=== PATIENT | male | born 1970 | race Caucasian/White ===

== ENCOUNTER → 2018-01-13 | Outpatient (CLI) | payer BC ==
[2014-05-20 12:21] VITALS: BMI 29.9
[~2018-01-13] MED LIST: BARIUM SULFATE 176 GM BTL PO ONE; BARIUM SULFATE 340 GM POWD ONE; ESC10 PO; ESOM20CA31 PO; ESOM40CA42 PO; LACT1PAC23 PO; OMEP-218 PO; PAN40 PO; PER PO; SIMV-49 PO; SIMV-54 PO; SUC1 PO; SUCR1TAB51 PO; [UNRECOGNIZED DRUG - CODE] PO
--- NOTE | 2018-01-13 10:25 | RADIOLOGY IMAGING REPORT ---
FACILITY: [facility] [place] PATIENT NAME: Kiel Saenz : 1970 MR: [id number] V: [id number] EXAM DATE: ORDERING PHYSICIAN: CROW PIMENTEL TECHNOLOGIST: Location: [facility] [place] Patient: Kiel Saenz : 1970 Visit/Account:[id number] Date of Sevice: 01/13/2018 Double contrast upper GI. HISTORY: Burning in lower esophagus for two weeks with reflux. COMPARISON: 10/11/2011. The patient swallowed thin and thick barium without difficulty. Minimal tertiary contractions are pr esent in the distal esophagus. The esophagus is otherwise unremarkable. No hiatal hernia or gastroes ophageal reflux. The stomach, pyloric channel, and the duodenum are unremarkable. The proximal jejunu m is unremarkable. No ulceration is identified. Surgical clips are present in the gallbladder fossa. FLUOROSCOPY TIME: 1.4 minutes. DOSE: DAP was 1761 microGy*m2. IMPRESSION: Minimal esophageal dysmotility. Otherwise negative upper GI. Report Dictated By: Ezekiel Fiore MD at 01/13/2018 10:13 AM Report E-Signed By: Ezekiel Fiore MD at 01/13/2018 10:20 AM WSN:[email or web address]
== END ==
LOC: RAD 04:19
PROVIDERS: ATTEND Surgery
DX: K22.4 Dyskinesia of esophagus (principal)
CPT/HCPCS: 74240

== ENCOUNTER 2018-01-15 01:51 | Day surgery (SDC) | payer BC ==
[2014-05-20 12:21] VITALS: Ht 190.5 cm; Wt 112.9 kg
[~2018-01-15] VITALS: Ht 190.5 cm; Wt 112.9 kg
[~2018-01-15 01:51] MED LIST changes: -BARIUM SULFATE 176 GM BTL PO ONE; -BARIUM SULFATE 340 GM POWD ONE
[2018-01-15] MEDS ORDERED: PROPOFOL EMUL(*) 10MG/ML 20 ML 60 ML ONE (06:59)
[2018-01-15 09:30] VITALS: BP 141/89
[2018-01-15] MEDS ORDERED: NORMOSOL R SOLN(*) 1000 ML BAG 1,000 ML IV PRN (10:40)
[2018-01-15] MEDS ORDERED: LIDOCAINE/SOD BICARB 8.4% SYR ID ONE (10:40)
[2018-01-15] MEDS ORDERED: KETAMINE HCL 500 MG/10 ML VIAL ONE (12:13)
[2018-01-15 13:09] VITALS: BP 109/79
[2018-01-15 13:15] VITALS: BP 135/96
--- NOTE | 2018-01-15 13:20 | Short(Outpt) Discharge Summary ---
Discharge Summary Reason for Hosp/Final Diag: (1) Epigastric abdominal pain Status: Acute Hospital Course & Plan: EGD with biopsies completed without any problems. (2) GERD (gastroesophageal reflux disease) Onset Date: 06/09/2014 Status: Chronic Departure Discharge to: Home, Self Care Discharge Instructions Home Meds Active Scripts Sucralfate (SUCRALFATE) 1 Gm Tablet, 1 GM PO ACHS, #120 TAB 0 Refills Prov:CROW PIMENTEL MD 12/30/17 Reported Medications Omeprazole Magnesium (PRILOSEC OTC) 20 Mg Tablet.dr, 2 TAB PO BID, TAB 12/31/17 Simvastatin (SIMVASTATIN) 20 Mg Tablet, 20 MG PO HS, TAB 12/31/17 Escitalopram Oxalate (Lexapro) 10 Mg Tab, 10 MG PO QHS, 0 Refills 07/02/11 Follow up Referrals: General Surgery - 02/11/18 @ Surgery, General with Crow Pimentel Md You have a follow up appointment scheduled with Dr. Pimentel on 02/11/18, at 11: 00am. Diet: Regular Activity: As Tolerated Special Instructions: Your upper endoscopy was completed without any problems. I didn't find any cancer, inflammation, ulcers, or other problems. I did perform biopsies of your stomach and duodenum. I will discuss these results with you when I see you back in my office. Continue taking the sucralfate and omeprazole. CROW PIMENTEL MD Jan 15, 2018 13:20
[2018-01-15 13:30] VITALS: BP 130/89
[2018-01-15 13:36] VITALS: BP 116/85
[2018-01-15 13:39] VITALS: BP 118/86
== END 2018-01-15 13:52 | disposition home or self-care (01) ==
LOC: OR 01:51
PROVIDERS: ATTEND Surgery
DX: R13.10 Dysphagia, unspecified (principal)
CPT/HCPCS: 43239; 87077; 88305; J2704; J3490